=== PATIENT | male | born 1975 | race Caucasian/White ===

== ENCOUNTER 2017-08-11 18:44 | Emergency (ER) | payer OTHER ==
[2017-08-11 19:11] VITALS: BP 157/126; TEMP 97.9; BMI 27.6
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
[2017-08-11 21:26] VITALS: PULSE 90
== END 2017-08-11 21:26 | disposition home or self-care (01) ==
LOC: JER 18:44 → JERFT 18:44
DX: M62.838 Other muscle spasm (principal); V89.2XXA Person injured in unspecified motor-vehicle accident, traffic, initial encounter; Y92.488 Other paved roadways as the place of occurrence of the external cause; Y93.89 Activity, other specified; Y99.8 Other external cause status
CPT/HCPCS: 73010-TC-FY; 99281-25

== ENCOUNTER 2018-01-24 12:16 | Day surgery (SDC) | payer OTHER ==
[2018-01-20 10:15] VITALS: BMI 24.3
[2018-01-24] MEDS ORDERED: ROPIVACAINE HCL 0.5% 30ML VIAL ONE (13:16)
[2018-01-24] MEDS ORDERED: DEXAMETHASONE SOD PHOSPHATE/PF 10 MG/ML SDV ONE (13:16)
--- NOTE | 2018-01-24 14:08 | HP ---
Satellite [facility] - Chief Complaint Chief Complaint: right shoulder pain - Past Medical History Allergies/Adverse Reactions: Allergies Allergy/AdvReac Type Severity Reaction Status Date / Time No Known Allergies Allergy Verified 01/24/18 13:05 - Current Medications Current Medications: Home Medications Medication Instructions Recorded Pramipexole Dihydrochloride 0.25 mg PO DAILY 01/20/18 [Mirapex -] Pramipexole Dihydrochloride 0.5 mg PO HS 01/20/18 [Mirapex -] Hydrocodone/Acetaminophen [[place] 1 each PO Q6H PRN #40 tablet MDD 4 01/24/18 5-325 Tablet] Satellite Physical Exam - Physical Examination Vital Signs: Vital Signs Period Temp Pulse Resp BP Sys/Lemus Pulse Ox Last 24 Hr 98.8 F 70 16 129/74 99 General Appearance: Well Nourished, Well Developed, Alert & Oriented x3 ENT: Clear Lung: Normal air movement Heart: Regular rate & rhythm Extremities: Other (right shoulder- +ttp, decr rom, + empty can, + neer, + connor, nvi MRI + rct) Neurological: Intact, Alert, Oriented Satellite Impression/Plan - Impression/Plan Impression: right shoulder rct Operative Procedure: right shoulder arthroscopy with RCR, SAD Date to be Performed: 01/24/18
[2018-01-24] MEDS ORDERED: MIDAZOLAM HCL 2 MG/2 ML SINGLE DOSE VIAL ONE ×2 (14:18)
[2018-01-24] MEDS ORDERED: LIDOCAINE HCL/PF 2% SDV 5ML VIAL ONE (14:48)
[2018-01-24] MEDS ORDERED: PROPOFOL 20 ML ONE ×2 (14:48)
[2018-01-24] MEDS ORDERED: ROCURONIUM BROMIDE 50 MG/5 ML VIAL ONE (14:49)
[2018-01-24] MEDS ORDERED: SUCCINYLCHOLINE CHLORIDE 200 MG/10 ML VIAL ONE (14:49)
[2018-01-24] MEDS ORDERED: DESFLURANE GAS 240 ML BOTTLE IH ONE (14:51)
--- NOTE | 2018-01-24 15:01 | HP ---
Satellite [facility] - Chief Complaint Chief Complaint: right shoulder pain, weakness, decreased ROM History of Present Illness: right shoulder injury, impingement, RTC tear History Source: Patient Limitations to Obtaining History: No Limitations - Past Medical History Allergies/Adverse Reactions: Allergies Allergy/AdvReac Type Severity Reaction Status Date / Time No Known Allergies Allergy Verified 01/24/18 13:05 - Current Medications Current Medications: Home Medications Medication Instructions Recorded Pramipexole Dihydrochloride 0.25 mg PO DAILY 01/20/18 [Mirapex -] Pramipexole Dihydrochloride 0.5 mg PO HS 01/20/18 [Mirapex -] Hydrocodone/Acetaminophen [[place] 1 each PO Q6H PRN #40 tablet MDD 4 01/24/18 5-325 Tablet] Satellite Physical Exam - Physical Examination Vital Signs: Vital Signs Period Temp Pulse Resp BP Sys/Lemus Pulse Ox Last 24 Hr 98.8 F 70 16 129/74 99 General Appearance: Well Nourished ENT: Clear Lung: Clear to auscultation Heart: Regular rate & rhythm Breasts: Soft Abdomen: Soft Extremities: No edema Satellite Impression/Plan - Impression/Plan Impression: right shoulder impingement, RTC tear Operative Procedure: right shoulder arthroscopy, decompression, ANNI, possible RTC repair Date to be Performed: 01/24/18
[2018-01-24] MEDS ORDERED: ceFAZolin SODIUM 1 GM VIAL IVPB ONE (15:20)
--- NOTE | 2018-01-24 16:21 | OP ---
Operative Note - Note: Operative Date: 01/24/18 Pre-Operative Diagnosis: right shoulder impingement syndrome, adhesive capsulitis Operation: right shoulder arthroscopy, subacromial decompression, distal clavicle excision, manipulation under anesthesia Post-Operative Diagnosis: Same as Pre-op Surgeon: Humphrey Hassan Anesthesiologist/BAG PRINTER: Dakota Snell Anesthesia: General, Local Specimens Removed: shavings Estimated Blood Loss (mls): 75 Blood Volume Replaced (mls): 0 Fluid Volume Replaced (mls): 500 Operative Report Dictated: Yes
[2018-01-24] MEDS ORDERED: ONDANSETRON 4 MG/2 ML VIAL IVPUSH PRN (16:42)
[2018-01-24] MEDS ORDERED: PROMETHAZINE HCL 25 MG/1 ML VIAL IVPUSH PRN (16:42)
[2018-01-24] MEDS ORDERED: ACETAMINOPHEN 1000 MG/100 ML VIAL (NON FORMULARY) IVPB ONE (16:42)
[2018-01-24] MEDS ORDERED: oxyCODONE HCL 5 MG TABLET PO PRN (16:42)
[2018-01-24] MEDS ORDERED: LACTATED RINGERS SOLUTION 1,000 ML IV SCH (16:45)
[2018-01-24 17:55] VITALS: TEMP 98
[2018-01-24 18:40] VITALS: BP 120/66; PULSE 70
--- NOTE | 2018-01-24 19:35 | OP ---
DATE OF OPERATION: DATE OF DICTATION: 01/24/2018 PREOPERATIVE DIAGNOSIS: Right shoulder impingement syndrome and adhesive capsulitis and possible rotator cuff tear. POSTOPERATIVE DIAGNOSIS: Right shoulder impingement syndrome and adhesive capsulitis. PROCEDURE: Right shoulder arthroscopy, subacromial decompression, also distal clavicle excision and manipulation under anesthesia. SURGEON: Humphrey Diaz M.D. CARTON FILLING MACHINE OPERATOR: None. ANESTHESIOLOGIST: Dakota Snell M.D. ANESTHESIA: Right interscalene block with LMA anesthesia DRAINS: None. COMPLICATIONS: None. BLOOD LOSS: 75 mL. BLOOD GIVEN: None. FLUID REPLACEMENT: 500 mL Plasmalyte. INDICATION: The patient is a 42-year-old male with preoperative diagnosis of right shoulder impingement syndrome, adhesive capsulitis and a small rotator cuff tear. After understanding potential risks, complications, alternatives, benefits to surgery versus nonsurgical treatment, the patient has elected to undergo this procedure. DESCRIPTION OF PROCEDURE: Patient was brought to the operating room, peripheral IV placed, IV sedation given, 1 g IV Ancef given. Right interscalene block was performed. LMA anesthesia was induced. He was placed into the beach chair position. A manipulation under anesthesia was then performed. Patient had significant tightness in passive motion, stopped at forward flexion 70 degrees, abduction of 60 degrees, external rotation of 15 degrees, internal rotation was able to be done across the chest. I did a manipulation under anesthesia and was able to get the right shoulder forward flexion to 180 degrees, abduction to 180 degrees, internal rotation all the way across the body, and external rotation to 50 degrees. Range of motion was much improved. Right upper extremity was prepped and draped in sterile fashion. Bony landmarks were marked around the right shoulder, and posterior portal was established. A diagnostic fluoroscopy is performed. There were some acute blood clots inside the shoulder joint, so the anterior portal was established and the shaver was introduced into the glenohumeral joint. The were removed as well as synovitis. The biceps tendon and labrum looked fine. The glenohumeral joint itself looked fine. There was no osteoarthritis or fracture. Patient had some sprain on the undersurface of the rotator cuff, therefore this was debrided, and this resulted there was no complete rotator cuff tear. It was extensively explored with the arm through a full range of motion, there was no significant tear. Next our attention turned to the subacromial space. A lateral portal was established with a spinal needle and a 15 scalpel blade, and a green cannula was introduced in the subacromial space. Next using ArthroCare wand, a significant debridement was done and soft tissue bursectomy. This revealed a large subacromial spur and a small subclavicular spur. Shaver was used to remove all soft tissue and debris. The top surface of the rotator cuff was inspected, and there was no rotator cuff tear on the bursal side either. Next, the 5.5 mm oval bur was used to do a bony subacromial and subclavicular decompression. The shaver was reintroduced in the joint and all debris was removed, the decompression fine tuned. The top surface of the rotator cuff again inspected, and there was no rotator cuff tear. The area was copiously irrigated and washed out. All instrumentation removed. Excess saline removed. The arthroscopy portal was closed with 3-0 nylon sutures. Area was washed and dried and covered with Aquacel dressing. He was extubated and brought down out of the beach chair position. He was stable throughout the case. Blood loss was 75 mL. Total operative time was about 45 minutes. HUMPHREY DIAZ M.D. [id number]
--- NOTE | 2018-01-26 16:16 | PATH ---
Surgical Pathology Report Patient Name: KENYATTA MANCUSO [facility]. Rec. #: [id number] /Age/Gender: 1975 (Age: 42) / M Account: [id number] Location: [facility] SURGICAL Taken: 01/24/2018 Received: 01/25/2018 Reported: 01/26/2018 Physicians: Humphrey Hassan M.D. Specimen(s) Received RIGHT SHOULDER SHAVINGS Clinical History Right shoulder tear Final Diagnosis SHOULDER SHAVINGS, RIGHT, ARTHROSCOPY AND SUBACROMIAL DECOMPRESSION: FRAGMENTS OF BENIGN CARTILAGE, DENSE FIBROCONNECTIVE TISSUE, BONE, SYNOVIUM, AND SKELETAL MUSCLE. Electronically Signed Lisa Bailey M.D. Gross Description Received in formalin, labeled "right shoulder shavings," is a 5.0 x 4.0 x 0.3 cm. aggregate of tierney-yellow soft tissue fragments. A medical service representative portion is submitted in one cassette. /01/25/2018 [facility]01/25/2018
== END 2018-01-24 18:25 | disposition home or self-care (01) ==
LOC: JASU-SURG 12:16
PROVIDERS: ATTEND Orthopaedic Surgery
PROC: 0RNJ4ZZ Release Right Shoulder Joint, Percutaneous Endoscopic Approach (ICD-10-PCS; 2018-01-24)
PROC: 0RSJXZZ Reposition Right Shoulder Joint, External Approach (ICD-10-PCS; 2018-01-24)
PROC: 0PB94ZZ Excision of Right Clavicle, Percutaneous Endoscopic Approach (ICD-10-PCS; principal; 2018-01-24 14:30)
DX: M75.41 Impingement syndrome of right shoulder (principal); M75.01 Adhesive capsulitis of right shoulder
CPT/HCPCS: 88304-TC; 94760